=== PATIENT | female | born 1985 | race Caucasian/White ===

== ENCOUNTER 2022-03-11 17:56 | Emergency (ER) | payer OTHER, SELFPAY ==
--- NOTE | ~2022-03-11 | CT_ITS ---
EXAMINATION: CT abdomen pelvis w con DATE: 03/11/2022 22:51 INDICATION: RLQ pain TECHNIQUE: Computed tomography (CT) of the abdomen and pelvis was performed with 100 mL Omnipaque-350 intravenous contrast. Automated exposure control and iterative reconstruction technique were employe d. The dose-length product was 202.77 mGy-cm. COMPARISON: 11/03/2017. FINDINGS: Lower thorax: Left basilar scar/atelectasis. Moderate hiatal hernia. Liver: Normal. Biliary/Gallbladder: Gallbladder is normal. No bile duct dilation. Pancreas: No mass or duct dilation. Spleen: Normal. Adrenals:No mass. Kidneys: No mass, stone, or hydronephrosis. GI tract: The rectum is dilated to 5.6 cm by formed stool. Appendix not visualized. Mesentery/Peritoneum: No ascites, mass, or free air. Retroperitoneum: No mass. Pelvis: Retroverted uterus. Right corpus luteal cyst. Free pelvic fluid in the physiologic range. Soft Tissues: Soft tissues and body wall unremarkable. Bones: No acute osseous finding. IMPRESSION: Appendix not visualized. Fecal impaction. Otherwise no CT finding to explain right lower quadrant rocky n. Reviewed, dictated and finalized at location K. IMPRESSION: Appendix not visualized. Fecal impaction. Otherwise no CT finding to explain ri ght lower quadrant pain.
[2022-03-11 17:58] VITALS: BP 132/93; PULSE 112; RESP 14; TEMP 37.1; O2SAT 99
[2022-03-11 18:30] LABS: Basophils Absolute Auto 0.1 K/mm3 (0.0-0.1); Basophils Percent Auto 1.5 % (0.2-1.2); Eosinophils Absolute Auto 0.4 K/mm3 (0-0.3); Eosinophils Percent Auto 5.4 % (0-4.4); Hematocrit 36.6 % (37.0-47.0); Immature Granulocyte Absolute 0.02 K/mm3 (0.00-0.031); Immature Granulocyte Percent A 0.3 % (0-0.5); Lymphocytes Absolute Auto 1.58 K/mm3 (0.9-3.2); Lymphocytes Percent Auto 19.8 % (18.3-44.2); Mean Corpuscular HGB Conc 30.1 g/dl (32-36); Mean Corpuscular Hemoglobin 22.8 pg (26-34); Mean Corpuscular Volume 75.9 fl (80-100); Monocytes Absolute Auto 0.5 K/mm3 (0.1-0.6); Monocytes Percent Auto 6.4 % (2.6-8.5); Neutrophils Absolute Auto 5.3 K/mm3 (1.3-6.7); Neutrophils Percent Auto 66.6 % (45.5-73.1); Platelet Count Result 481 k/mm3 (150-375); Red Blood Count 4.82 M/mm3 (4.2-5.4); Red Cell Distribution Width 14.9 % (11.5-14.5)
[2022-03-11 18:40] LABS: Appearance Urine Slightly Cloudy (Clear); Bilirubin Urine 1+ (Negative); Blood Urine Negative (Negative); Color Urine Yellow (Yellow); Glucose Urine UA Negative (Negative); Ketones Urine 1+ mg/dL (Negative); Leukocyte Esterase Ur Negative LEU/UL (Negative); Nitrate Urine Negative (Negative); Protein Urine 1+ mg/dL (Negative); Specific Grav Ur >= 1.030 (1.001-1.035); Urobilinogen Urine 0.2 mg/dL (<2.0); pH Urine 5.5 (5.0-9.0)
[2022-03-11 18:43] LABS: Alanine Aminotransferase 35 U/L (6-35); Albumin Level 4.2 g/dL (3.5-5.1); Alkaline Phosphatase 95 U/L (38-126); Anion Gap 13 mmol/L (8-16); Aspartate Amino Transferase 36 U/L (14-36); Bilirubin,Total 0.5 mg/dL (0.2-1.3); Blood Urea Nitrogen 14 mg/dL (7-17); Carbon Dioxide 20 mmol/L (22-30); Chloride 101 mmol/L (98-107); Estimated CRCL calculation 98 ml/min; Estimated Glomerular Filt Rate > 60; Glucose 103 mg/dL (65-110); Lipase 44 U/L (23-300); Potassium 3.6 mmol/L (3.4-5.0); Sodium 134 mmol/L (137-145)
[2022-03-11 18:49] LABS: Bacteria Urine Trace /hpf; Mucus Urine Few /lpf; Squamous Epithelial Cell Urine Many /hpf (Few)
[2022-03-11 18:52] LABS: Amorphous Sediment Urine Few
[2022-03-11 18:53] LABS: Add Urine Microscopic? YES
[2022-03-11] MEDS: SODIUM CHLORIDE 0.9% IV 1,000 ML 999 ML IV CONT (21:24)
[2022-03-11] MEDS: ONDANSETRON INJ 4 MG/2 ML VIAL IV PUSH (21:26)
[2022-03-11] MEDS: MORPHINE SULFATE (*CRX) 4 MG/ML INJ IV PUSH (21:28)
[2022-03-11 21:29] VITALS: BP 117/78; PULSE 97; RESP 18; O2SAT 100
[2022-03-11 22:12] LABS: Pregnancy On Board Control Positive; Urine Pregnancy Test Negative
--- NOTE | 2022-03-11 23:02 | ED.ABDPAIN ---
HPI - Abdominal Pain General Chief Complaint: Abdominal Pain Stated Complaint: abd pain Time Seen by Provider: 03/11/22 20:28 History of Present Illness HPI narrative: Patient is a 37-year-old female who presents ER with right lower quadrant abdominal pain. Ongoing over the last week and a half worsening over the last 2 days. Worsened with movement and palpation of the right lower quadrant. No fevers or chills or sweats. Denies diarrhea or constipation. She is passing gas. Has not found any alleviating factors. Denies urinary symptoms. Related Data Allergies Allergy/AdvReac Type Severity Reaction Status Date / Time amoxicillin Allergy Unknown Unknown Verified 03/11/22 20:48 Penicillins Allergy Unknown Unknown Verified 03/11/22 20:48 Review of Systems Review of Systems: All systems reviewed & are unremarkable except as noted in HPI and below Constitutional: Constitutional: Denies chills and Denies fever(s) Cardiovascular: Cardiovascular: Denies chest pain and Denies radiating jaw, neck or arm pain Respiratory: Respiratory: Denies cough and Denies dyspnea Gastrointestinal: Gastrointestinal: Reports abdominal pain, Denies constipation, Denies diarrhea, Denies nausea and Denies vomiting Genitourinary: Genitourinary: Denies nocturia, Denies dysuria and Denies flank pain Exam Narrative: GENERAL: Uncomfortable-appearing, well-nourished, and in no acute distress. HEAD: Normocephalic, atraumatic. CHEST: Clear to auscultation. No respiratory distress. HEART: Regular rate and rhythm. Normal peripheral pulses. ABDOMEN: Soft, nontender, nondistended, normal active bowel sounds. EXTREMITIES: Normal range of motion. No edema. SKIN: Warm, dry, no rash. NEURO: Alert and oriented x3. PSYCH: Normal mood and affect. Course Course Emergency Course: Patient with evacuation of large amount of stool after administering enema. Discharge home with stool softeners. Vital Signs Vital signs: Vital Signs Temperature 98.8 F 03/11/22 17:58 Pulse Rate 112 H 03/11/22 17:58 Respiratory Rate 14 03/11/22 17:58 Blood Pressure 132/93 H 03/11/22 17:58 Pulse Oximetry 99 03/11/22 17:58 Oxygen Delivery Room Air 03/11/22 17:58 Temperature 98.8 F 03/11/22 17:58 Pulse Rate 97 03/11/22 21:29 Respiratory Rate 18 03/11/22 21:29 Blood Pressure 117/78 03/11/22 21:29 Pulse Oximetry 100 03/11/22 21:29 Oxygen Delivery Room Air 03/11/22 17:58 MDM - Abdominal Pain Lab Data Result diagrams: 03/11/22 18:17 03/11/22 18:17 Labs: Lab Results 03/11/22 03/11/22 03/11/22 Range/Units 18:16 18:17 18:17 WBC 8.0 (4.5-10.0) K/mm3 RBC 4.82 (4.2-5.4) M/mm3 Hgb 11.0 L (12.0-15.0) g/dL Hct 36.6 L (37.0-47.0) % MCV 75.9 L (80-100) fl MCH 22.8 L (26-34) pg MCHC 30.1 L (32-36) g/dl RDW 14.9 H (11.5-14.5) % Plt Count 481 H (150-375) k/mm3 MPV 9.0 (7.4-10.4) fl Immature Gran % (Auto) 0.3 (0-0.5) % Neut % (Auto) 66.6 (45.5-73.1) % Lymph % (Auto) 19.8 (18.3-44.2) % [place] % (Auto) 6.4 (2.6-8.5) % Eos % (Auto) 5.4 H (0-4.4) % Baso % (Auto) 1.5 H (0.2-1.2) % Lymph # (Auto) 1.58 (0.9-3.2) K/mm3 [place] # (Auto) 0.5 (0.1-0.6) K/mm3 Eos # (Auto) 0.4 H (0-0.3) K/mm3 Baso # (Auto) 0.1 (0.0-0.1) K/mm3 Abs Immat Gran (auto) 0.02 (0.00-0.031) K/mm3 Absolute Neuts (auto) 5.3 (1.3-6.7) K/mm3 Absolute Nucleated RBC 0.0 (0.0-0.012) K/mm3 Nucleated RBC % 0.0 (0.0-0.2) % Sodium (137-145) mmol/L Potassium (3.4-5.0) mmol/L Chloride (98-107) mmol/L Carbon Dioxide (22-30) mmol/L Anion Gap (8-16) mmol/L BUN (7-17) mg/dL Creatinine (0.7-1.0) mg/dL Estim Creat Clear Calc ml/min Estimated GFR (59 - ) Glucose (65-110) mg/dL Calcium (8.4-10.2) mg/dL Total Bilirubin (0.2-1.3) mg/dL AST (14-36) U/L ALT (6-35) U/L Alkaline Phosphata
[2022-03-12 01:10] VITALS: BP 108/72; PULSE 96; RESP 18; O2SAT 100
== END 2022-03-12 01:10 | disposition home or self-care (01) ==
PROVIDERS: Physician Assistant; Emergency Provider Emergency Medicine; PCP Physician Assistant
DX: K56.41 Fecal impaction (principal)
CPT/HCPCS: 36415; 74177; 80053; 81001; 81025; 83690; 85025; 96361; 96374; 96375; 99284; J2270; J2405; J7030; Q9967

== ENCOUNTER 2023-04-20 15:54 | Emergency (ER) | payer OTHER, SELFPAY ==
--- NOTE | 2023-04-20 16:04 | ED.SOB ---
HPI - SOB/Dyspnea General Chief Complaint: Shortness of Breath/Dyspnea Stated Complaint: Swelling of Legs/Shortness of Breath Time Seen by Provider: 04/20/23 16:20 Mode of arrival: ambulatory Limitations: no limitations History of Present Illness HPI Narrative: 38-year-old female presents with concern for edema, shortness of breath. Patient reports 3 days ago she began having large amount edema in her legs, torso. Reports it makes her feel short of breath when she is active. MD elicited complaint: shortness of breath (Edema) and anxiety Related Data Home Medications Medication Instructions Recorded Confirmed alprazolam 1 mg tablet mg 04/20/23 cyclobenzaprine 10 mg tablet mg 04/20/23 sertraline 04/20/23 Allergies Allergy/AdvReac Type Severity Reaction Status Date / Time amoxicillin Allergy Unknown Unknown Verified 03/11/22 20:48 Penicillins Allergy Unknown Unknown Verified 03/11/22 20:48 Review of Systems Review of Systems: CONSTITUTIONAL: Denies fever. CARDIOVASCULAR: Denies chest pain, palpitations. Reports generalized edema. RESPIRATORY: Denies cough your report dyspnea. GASTROINTESTINAL: Denies abdominal pain MUSCULOSKELETAL: Reports myalgia. PSYCHIATRIC: Reports anxiety All systems reviewed & are unremarkable except as noted in HPI and below PMFSH Comments At time of signature, agree with nursing past medical, surgical, social and family history. There is no relevant family history pertinent to the presenting complaint Exam Narrative: GENERAL: Nontoxic-appearing HEAD: Normocephalic, atraumatic. EYES: PERRLA, sclera clear ENT: Nares clear. Mucous membranes moist. NECK: Supple. CHEST: No respiratory distress. Clear to auscultation. No bony deformities, no asymmetry. Speaks in full sentences. HEART: Tachycardic EXTREMITIES: Marked edema of all extremities SKIN: Warm, dry, no visible rash. NEURO: Alert and oriented x3. PSYCH: Tearful Course Course Emergency Course: Patient is aware of, understands and agrees to be transferred to the emergency room. Patient agrees to proceed directly to the emergency department. Portions of this record may have been created with voice recognition software Level of Care: Express Care Visit Vital Signs Vital signs: Reviewed. Transfer Transfered to: [facility] Transportation: Other ([facility]) Transfer rationale: Tachycardia, generalized edema Accepting physician: Brian MDM - SOB/Dyspnea MDM Narrative Medical decision making narrative: Exam findings warrant further evaluation emergency room Critical Care Time Critical Care Time Critical Care Time: No Discharge Plan Discharge Clinical Impression: Edema, Tachycardia Patient Disposition: Acute Care Hospital Condition: Stable Prescriptions: No Action cyclobenzaprine 10 mg tablet alprazolam 1 mg tablet sertraline polyethylene glycol 3350 [Miralax] 17 gram powder in packet 17 g PO DAILY Qty: 14 0RF Follow-up/Referrals: Dinesh,SIVAN Vogel [Primary Care Provider] - Time of Disposition: 16:27
[2023-04-20 16:12] VITALS: BP 109/93; PULSE 140; RESP 16; TEMP 37.4; O2SAT 99
== END 2023-04-20 16:37 | disposition short-term general hospital (02) ==
PROVIDERS: Emergency Provider Nurse Practitioner; PCP Physician Assistant
DX: R60.9 Edema, unspecified (principal); R00.0 Tachycardia, unspecified; Z79.899 Other long term (current) drug therapy
CPT/HCPCS: 99212; G0463

== ENCOUNTER 2023-04-20 17:10 | Observation (INO) | payer OTHER, SELFPAY ==
[2023-04-20] VITALS (23 sets, daily range): BP systolic 119–133; BP diastolic 72–91; PULSE 91–147; RESP 11–23; TEMP 36.9–37.6; O2SAT 99–100; BMI 29.7
--- NOTE | ~2023-04-20 | XR_ITS ---
EXAMINATION: XR chest 2V Exam Date/Time: 04/20/2023 20:15 CDT HISTORY: swelling, CP, SOB Comparison: 10/26/2018; CT abdomen and pelvis 04/20/2023. RESULT: Lines, tubes, and devices: None. Lungs and pleura: Reticulonodular opacities, most evident in the left lower lung. No focal consolida tion. No pneumothorax or effusion. Cardiomediastinal silhouette: Hiatal hernia otherwise unremarkable. Other: No acute osseous or upper abdominal finding. IMPRESSION: Pulmonary opacities may represent bronchiolitis, as can be seen with atypical infection, asthma, aspi ration, and small airways disease. Reviewed, dictated and finalized at location K. IMPRESSION: Pulmonary opacities may represent bronchiolitis, as can be seen with atypical i nfection, asthma, aspiration, and small airways disease.
--- NOTE | ~2023-04-20 | CT_ITS ---
EXAMINATION: CT abdomen pelvis w con DATE: 04/20/2023 20:18 INDICATION: RLQ tenderness TECHNIQUE: Computed tomography (CT) of the abdomen and pelvis was performed with 100 mL Omnipaque-350 intravenous contrast. Automated exposure control and iterative reconstruction technique were employe d. The dose-length product was 451.62 mGy-cm. COMPARISON: None. FINDINGS: Lower thorax: Minimal bibasilar atelectasis. Left lingular and basilar scar. Subtle left lower lobe c entrilobular groundglass and tree-in-bud opacities. Liver: Normal. Biliary/Gallbladder: Gallbladder is normal. No bile duct dilation. Pancreas: No mass or duct dilation. Spleen: Normal. Adrenals:No mass. Kidneys: No suspicious mass, obstructing stone, or hydronephrosis. GI tract: Small hiatal hernia. Patulous distal esophagus with moderate wall thickening/edema and surr ounding subcentimeter lymph nodes.. No small or large bowel dilation. Large volume of colonic stool. Mild mucosal hyperemia and mild periappendiceal inflammatory change in a nondilated appendix. Mesentery/Peritoneum: No ascites, mass, or free air. Retroperitoneum: No mass. Pelvis: Mild bladder wall thickening/inflammation in a partially distended urinary bladder. Normal ov yogi and uterus. Small and free pelvic fluid, within physiologic range Soft Tissues: Soft tissues and body wall unremarkable. Bones: No acute osseous finding. IMPRESSION: Subtle left lower lobe opacities may represent mild aspiration, atypical infection, or bronchiolitis. Distal esophagitis and esophageal wall thickening, with adjacent subcentimeter lymph nodes, recommend nonemergent referral for endoscopy. Mucosal hyperemia and mild periappendiceal inflammatory change, may represent early acute appendiciti s in the appropriate clinical context. Cystitis versus wall thickening from inadequate urinary bladder distention. Large volume of colonic stool as can be seen with constipation. Reviewed, dictated and finalized at location K. IMPRESSION: Subtle left lower lobe opacities may represent mild aspiration, atypical infect ion, or bronchiolitis. Distal esophagitis and esophageal wall thickening, with adjacent subcentimeter lymph nodes, recommend nonemergent referral for endoscopy. Mucosal hyperemia and mild periappendiceal inflammatory change, may represent e tracie acute appendicitis in the appropriate clinical context. Cystitis versus wall thickening from inadequate urinary bladder distention. Large volume of colonic stool as can be seen with constipation.
--- NOTE | ~2023-04-20 | US_ITS ---
Limited Abdominal Sonogram: Real-time sonographic imaging of the right upper quadrant was performed. Clinical History: Transaminitis Findings: The liver appears normal with no evidence of mass lesion or bile duct dilatation. Main por amando vein demonstrates normal direction of flow. The gallbladder is well distended, and appears normal with no evidence of gallstone or wall thickening. The common bile duct measures 5 mm. The visualize d pancreas, aorta, and IVC are unremarkable. Right kidney measures 8.6 cm in length, without evidence for hydronephrosis. Impression: No significant abnormality seen. Reviewed, dictated and finalized at location . Impression: No significant abnormality seen.
--- NOTE | ~2023-04-20 | US_ITS ---
Duplex Sonography of the bilateral lower extremities: Indication: Swelling Sagittal and transverse B-mode images as well as color-flow imaging were performed on the right and l eft femoral and popliteal veins. B-mode examination was done without and with compression in the tra nsverse plane. There is good visualization of the bilateral common femoral, proximal profunda femora l, superficial femoral, greater saphenous, and popliteal veins. Normal flow was seen on color-flow im aging. Normal compressibility was demonstrated. Visualized calf veins are patent. Impression: No evidence of deep vein thrombosis involving either lower extremity. Reviewed, dictated and finalized at location M. Impression: No evidence of deep vein thrombosis involving either lower extremit y.
--- NOTE | 2023-04-20 17:16 | ECG_ITS ---
Measurements Intervals [place] Rate: 132 P: 42 ID: 122 QRS: 5 QRSD: 82 T: 13 QT: 310 QTc: 460 Interpretive Statements SINUS TACHYCARDIA DELAYED PRECORDIAL R/S TRANSITION MINIMAL Q WAVES- HIGH LATERAL LEADS BORDERLINE T WAVE ABNORMALITY- INFERIOR LEADS ABNORMAL ECG NO PREVIOUS ECG AVAILABLE FOR COMPARISON Electronically Signed On 04-20-2023 19:56:35 CDT by William Chun D.O.
--- NOTE | 2023-04-20 18:50 | ED.EXTPRO ---
HPI - Extremity Problem General Chief complaint: Extremity Problem,Nontraumatic Stated complaint: leg swelling for 3 days. Time Seen by Provider: 04/20/23 17:37 History of Present Illness HPI Narrative: Patient is a 38-year-old female presenting with swelling. Patient states that she noticed mild feet swelling about 6 weeks ago. She saw her physician who ordered labs but she is unsure what they showed. States over the last 3 days she has had an acute worsening of the swelling and she is now swollen to her abdomen. States that she has been vomiting for several weeks. She complains of right lower abdominal pain. States that she has been short of breath with a cough. She sometimes gets chest pain when she feels anxious. No fevers or chills, headache, numbness or weakness, lightheadedness, diarrhea, dysuria, flank pain. Related Data Home Medications Medication Instructions Recorded Confirmed alprazolam 1 mg tablet 1 mg PO TID 04/20/23 04/21/23 cyclobenzaprine 10 mg tablet 10 mg PO BID 04/20/23 04/21/23 sertraline 200 mg PO DAILY 04/20/23 04/21/23 Allergies Allergy/AdvReac Type Severity Reaction Status Date / Time amoxicillin Allergy Unknown Unknown Verified 03/11/22 20:48 Penicillins Allergy Unknown Unknown Verified 03/11/22 20:48 Review of Systems Review of Systems: All systems reviewed & are unremarkable except as noted in HPI and below PMFSH Past Medical History Medical History (Updated 04/24/23 @ 14:16 by Ana Randle MD) Constipation Gastroparesis Hepatitis C Family History Family History Father FH: kidney cancer Mother Heart attack Social History Social History Smoking status: Former smoker Tobacco type: cigarettes and e-cigarettes/vaping Alcohol intake: former Substance use: current Substance use type: marijuana Last use: 04/09/23 Lack of Transportation: No Lack of Food: Never True Current Housing: I Have Housing Concerned About Future Housing: No Difficulty Paying Gas/Electric Bills: No Difficulty Paying for Meds: No Currently Unemployed: No Education: Don't Know Difficulty w/ Childcare or Family Care: No Spiritual care concerns: No Exam Narrative: GENERAL: Tearful secondary to situation, pleasant and cooperative HEAD: Normocephalic, atraumatic. EYES: PERRLA and EOMI. ENT: Nares clear, no rhinorrhea or epistaxis. Mucous membranes moist. NECK: Supple. CHEST: Clear to auscultation. No respiratory distress. HEART: Tachycardic, regular rhythm normal peripheral pulses. ABDOMEN: Soft, + right lower quadrant tenderness without guarding or rebound EXTREMITIES: Normal range of motion. Pitting edema bilateral lower extremities up to the thighs SKIN: Warm, dry, no rash. NEURO: No focal deficits. Alert and oriented x3. PSYCH: Tearful and anxious Course Vital Signs Vital signs: Vital Signs Temperature 99.6 F 04/20/23 17:17 Pulse Rate 147 H 04/20/23 17:17 Respiratory Rate 23 H 04/20/23 17:17 Blood Pressure 127/72 04/20/23 17:17 Pulse Oximetry 99 04/20/23 17:17 Oxygen Delivery Room Air 04/20/23 17:17 Temperature 97.4 F L 04/22/23 06:00 Pulse Rate 109 H 04/22/23 06:00 Respiratory Rate 18 04/22/23 06:00 Blood Pressure 104/80 04/22/23 06:00 Pulse Oximetry 97 04/22/23 06:00 Oxygen Delivery Room Air 04/22/23 08:00 MDM - Extremity (Nontraumatic) MDM Narrative Medical decision making narrative: Patient is a 38-year-old female presenting with progressive lower extremity swelling that is now up to her abdomen. Patient is tachycardic, otherwise vitals are within normal limits. Saturating well on room air. Exam otherwise remarkable for the above. EKG per my interpretation shows sinus tachycardia, normal axis and intervals, no ST elevations or depressions. Blood work is concerning for hemoglobin of 5. 2 unit
[2023-04-20 19:16] LABS: Basophils Absolute Auto 0.1 K/mm3 (0.0-0.1); Basophils Percent Auto 0.9 % (0.2-1.2); Eosinophils Absolute Auto 0.9 K/mm3 (0-0.3); Eosinophils Percent Auto 9.7 % (0-4.4); Hematocrit 21.4 % (37.0-47.0); Immature Granulocyte Absolute 0.19 K/mm3 (0.00-0.031); Immature Granulocyte Percent A 2.1 % (0-0.5); Lymphocytes Absolute Auto 1.91 K/mm3 (0.9-3.2); Lymphocytes Percent Auto 21.1 % (18.3-44.2); Mean Corpuscular HGB Conc 23.4 g/dl (32-36); Mean Corpuscular Hemoglobin 15.2 pg (26-34); Mean Corpuscular Volume 65.2 fl (80-100); Mean Platelet Volume 9.2 fl (7.4-10.4); Monocytes Absolute Auto 0.7 K/mm3 (0.1-0.6); Monocytes Percent Auto 7.2 % (2.6-8.5); Neutrophils Absolute Auto 5.3 K/mm3 (1.3-6.7); Nucleated Red Blood Cells Absolute Auto 0.1 K/mm3 (0.0-0.012); Nucleated Red Blood Cells Perc 1.4 % (0.0-0.2); Platelet Count Result 376 k/mm3 (150-375); Red Blood Count 3.28 M/mm3 (4.2-5.4); Red Cell Distribution Width 20.9 % (11.5-14.5)
[2023-04-20 19:37] LABS: Hypochromasia 2+ (NORMAL); Schistocytes None Seen (NORMAL)
[2023-04-20 19:38] LABS: Anisocytosis 3+ (NORMAL)
[2023-04-20 19:45] LABS: Alanine Aminotransferase 222 U/L (6-35); Albumin Level 2.9 g/dL (3.5-5.1); Alkaline Phosphatase 155 U/L (38-126); Anion Gap 1 mmol/L (8-16); Aspartate Amino Transferase 209 U/L (14-36); Bilirubin,Total 0.3 mg/dL (0.2-1.3); Blood Urea Nitrogen 6 mg/dL (7-17); Calcium 8.9 mg/dL (8.4-10.2); Carbon Dioxide 28 mmol/L (22-30); Chloride 105 mmol/L (98-107); Estimated CRCL calculation 145 ml/min; Estimated Glomerular Filt Rate > 60; Glucose 98 mg/dL (65-110); Lipase 50 U/L (23-300); Potassium 3.8 mmol/L (3.4-5.0); Sodium 134 mmol/L (137-145)
[2023-04-20 19:49] LABS: Ethanol < 10 mg/dL (<10)
[2023-04-20 19:54] LABS: Influenza A QL RT-PCR Negative (Negative); Influenza B QL RT-PCR Negative (Negative); SARS-CoV-2 RNA PCR Negative (Negative)
[2023-04-20 19:56] LABS: NT Pro B Type Natriuretic Pept < 20 pg/mL (19.9-100); Troponin I < 0.012 ng/mL (0.000-0.034)
[2023-04-20 20:28] LABS: Pregnancy On Board Control Positive; Urine Pregnancy Test Negative
[2023-04-20 20:35] LABS: Appearance Urine Cloudy (Clear); Bacteria Urine 4+ /hpf; Bilirubin Urine Negative (Negative); Blood Urine Negative (Negative); Color Urine Yellow (Yellow); Glucose Urine UA Negative (Negative); Ketones Urine Negative (Negative); Leukocyte Esterase Ur 3+ LEU/UL (Negative); Need Manual Microscopic Reviewed; Nitrate Urine Negative (Negative); Non Pathogenic Casts 0-2; Protein Urine Negative (Negative); RBC Urine 0-2 /hpf (0-2); Squamous Epithelial Cell Urine Few /hpf (Few); Urobilinogen Urine 0.2 mg/dL (<2.0); pH Urine 7.5 (5.0-9.0)
[2023-04-20 20:36] LABS: Add Urine Microscopic? YES
--- NOTE | 2023-04-20 22:01 | PM.IMHP ---
H&P: HPI History of Present Illness Date/Time: 04/20/23 22:01 Chief Complaint: LEG SWELLING Narrative: THIS IS A 38-YEAR-OLD FEMALE WITH PAST MEDICAL HISTORY SIGNIFICANT FOR HEPATITIS-C, IRON DEFICIENCY ANEMIA. PATIENT PRESENTS TO THE EMERGENCY ROOM DUE TO WORSENING BILATERAL LOWER EXTREMITY EDEMA. PATIENT CAN NOT REALLY GIVE A GOOD HISTORY IS DISPERSE, TANGENTIAL AND CIRCUMSTANTIAL. DENIED COFFEE-GROUND EMESIS OR HEMATEMESIS OR BRIGHT RED BLOOD PER RECTUM OR MELENA HOWEVER SAID THAT SHE HAD SOME BLEEDING BUT DIFFICULT TO TELL HAS BEEN IN HER USUAL STATE OF HEALTH. EXAMINATION: CT abdomen pelvis w con DATE: 04/20/2023 20:18 INDICATION: RLQ tenderness TECHNIQUE: Computed tomography (CT) of the abdomen and pelvis was performed with 100 mL Omnipaque-350 intravenous contrast. Automated exposure control and iterative reconstruction technique were employed. The dose-length product was 451.62 mGy-cm. COMPARISON: None. FINDINGS: Lower thorax: Minimal bibasilar atelectasis. Left lingular and basilar scar. Subtle left lower lobe centrilobular groundglass and tree-in-bud opacities. Liver: Normal.? Biliary/Gallbladder: Gallbladder is normal. No bile duct dilation. Pancreas: No mass or duct dilation. Spleen: Normal. Adrenals:No mass. Kidneys: No suspicious mass, obstructing stone, or hydronephrosis. GI tract: Small hiatal hernia. Patulous distal esophagus with moderate wall thickening/edema and surrounding subcentimeter lymph nodes.. No small or large bowel dilation. Large volume of colonic stool. Mild mucosal hyperemia and mild periappendiceal inflammatory change in a nondilated appendix. Mesentery/Peritoneum: No ascites, mass, or free air. Retroperitoneum: No mass. Pelvis: Mild bladder wall thickening/inflammation in a partially distended urinary bladder. Normal ovaries and uterus. Small and free pelvic fluid, within physiologic range Soft Tissues: Soft tissues and body wall unremarkable. Bones:? No acute osseous finding. IMPRESSION: Subtle left lower lobe opacities may represent mild aspiration, atypical infection, or bronchiolitis. Distal esophagitis and esophageal wall thickening, with adjacent subcentimeter lymph nodes, recommend nonemergent referral for endoscopy. Mucosal hyperemia and mild periappendiceal inflammatory change, may represent early acute appendicitis in the appropriate clinical context. Cystitis versus wall thickening from inadequate urinary bladder distention. Large volume of colonic stool as can be seen with constipation. Review of Systems Review of Systems: LEG SWELLING Constitutional: Constitutional: Denies chills and Denies fever(s) Eyes: Eyes: Denies change in vision ENT: Denies dysphagia, Denies vertigo, Denies dizziness and Denies odynophagia Cardiovascular: Cardiovascular: Denies chest pain, Reports leg edema, Denies radiating jaw, neck or arm pain and Denies palpitations Respiratory: Respiratory: Denies cough, Denies excessive phlegm production, Denies pain on inspiration, Denies dyspnea and Denies wheezing Gastrointestinal: Gastrointestinal: Reports abdominal pain, Denies melena, Denies hematochezia, Denies coffee ground emesis, Denies dyspepsia, Reports heartburn, Denies diarrhea, Reports nausea, Reports vomiting and Denies hematemesis Genitourinary: Genitourinary: Denies dysuria Musculoskeletal: Musculoskeletal: Denies arthralgias and Denies joint swelling Integumentary/Breasts: Skin/Breast: Denies rash Neurologic: Denies focal weakness and Denies Sensory deficit (Neuro) Psychiatric: Psychiatric: Reports no additional psychiatric complaints and Reports as per HPI Endocrine: Endocrine: Denies cold intolerance, Denies fatigue, Denies flushing, Denies heat intolerance, Denies polyphagia, Denies polydipsia, Denies polyuria and Denies palpitations Hematologic/Lymphatic: Hematologic/Lymphatic: Reports no additional hematologic/lymphatic complaints and Reports as per HPI Allerg
[2023-04-20 22:25] LABS: Acetaminophen < 10 ug/mL (10-30)
[2023-04-20] MEDS: SODIUM CHLORIDE 0.9% IV 250 ML 30 ML IV CONT (22:58)
--- NOTE | 2023-04-20 23:42 | ADMGEN ---
This patient, Kassandra Cazares, was admitted to Medical Room 253-01. Patient/family oriented to hospital policies and general routines including ID bracelet, bed and alarms, visiting hours, pain management, procedures, bathroom and other care routines, personal items, smoking policy, room service/diet, and visiting hours. Information on how to activate the Rapid Response Team has been discussed. Patient/Family are encouraged to report perceived risks to care and to ask questions if they do not understand what they are told or what they should do.
[2023-04-20] MEDS: metroNIDAZOLE 500 MG/ISO 100ML 500 MG/100 ML BAG 100 MG IVPB (23:49)
[2023-04-20] MEDS: cefTRIAXone 2 GM/NS 100 ML 2 GM/100 ML BAG IVPB (23:50)
[2023-04-20] MEDS: PANTOPRAZOLE SODIUM IV 40 MG VIAL IV PUSH (23:50)
[2023-04-20] MEDS: HYDROmorphone HCL INJ (*CRX) 1 MG/ML SYR IV PUSH (23:51)
[2023-04-21] VITALS (16 sets, daily range): BP systolic 109–141; BP diastolic 61–89; PULSE 82–122; RESP 16–20; TEMP 36.3–37.4; O2SAT 92–100
--- NOTE | 2023-04-21 | ECHO_ITS ---
Patient Info Name: Kassandra Cazares Age: 38 years : 1985 Gender: Female Ht: 61 in Wt: 146 lbs BSA: 1.71 m2 HR: 77 bpm Heart Rhythm: Sinus Rhythm Technical Quality: Good Exam Date: 04/21/2023 2:13 PM Exam Location: [facility] Pulmonary Patient Status: Outpatient Admit Date: 04/20/2023 Staff Ordering Physician: Geronimo Dangelo APRN Supervisor Wound: Sha Mills RDCS Attending Provider: Flavio Locke MD Referring Physician: Antolin POPE; Exam Type: CA echo doppler color flow Study Info Indications - swelling Complete two-dimensional, color flow and Doppler transthoracic echocardiogram is performed. Summary 1. Complete two-dimensional, color flow and Doppler transthoracic echocardiogram is performed. 2. Left ventricular chamber dimension is normal. 3. Left ventricular systolic function is normal, estimated at 60-65%. 4. The left ventricular diastolic function is normal. 5. Right ventricular systolic function is normal. 6. No significant valvular disease. Left Ventricle Left ventricular chamber dimension is normal. Left ventricular systolic function is normal, estimated at 60-65%. There is no increased left ventricular wall thickness. The left ventricular diastolic function is normal. Right Ventricle Right ventricular chamber dimension is normal. Right ventricular systolic function is normal. Left Atria Left atrial chamber dimension is normal. Right Atria Right atrial chamber dimension is normal. Atrial Septum Intact interatrial septum visualized by color flow imaging. Aortic Valve The aortic valve is trileaflet. There is no aortic valve stenosis. There is no aortic valve regurgitation. Pulmonic Valve The pulmonic valve is not well visualized. Mitral Valve There is trace mitral valve regurgitation. Tricuspid Valve There is trace tricuspid valve regurgitation. Pericardium/Pleural There is no pericardial effusion. Inferior Vena Cava Normal inferior vena cava with >50% collapse upon inspiration consistent with normal right atrial pressure, 3 mmHg. Aorta The aortic root size at the sinus of Valsalva is normal. Left Ventricular Outflow Tract Name Value Normal LVOT 2D LVOT Diameter 1.8 cm LVOT Doppler LVOT Peak Gradient 6 mmHg LVOT Mean Gradient 4 mmHg LVOT VTI 30 cm LVOT VTI/AV VTI Ratio 0.8 LVOT Stroke Volume 75 ml LVOT CO 5.0 l/min LVOT CI 2.9 l/min/m2 Pulmonic Valve Name Value Normal RVOT Doppler RVOT Peak Gradient 2 mmHg PV Doppler PV Peak Gradient 4 mmHg Mitral Valve Name Valu
[2023-04-21 00:18] LABS: Troponin I < 0.012 ng/mL (0.000-0.034)
[2023-04-21 01:15] LABS: Hepatitis B Surface Antigen Negative (Negative)
[2023-04-21 01:20] LABS: HAV RESULT Negative (Negative); Hepatitis B Core IgM Result Negative (Negative)
[2023-04-21 01:33] LABS: Hepatitis C Virus Antibody Reactive (Negative)
[2023-04-21 02:57] LABS: Troponin I < 0.012 ng/mL (0.000-0.034)
[2023-04-21] MEDS: PANTOPRAZOLE SODIUM IV 80 MG in SODIUM CHLORIDE 0.9% IV 500 ML 50 MG IV CONT (03:38)
[2023-04-21] MEDS: HYDROmorphone HCL INJ (*CRX) 1 MG/ML SYR IV PUSH (03:41)
[2023-04-21 05:30] LABS: Hematocrit 28.8 % (37.0-47.0); Hemoglobin 8.1 g/dL (12.0-15.0); Mean Corpuscular HGB Conc 28.1 g/dl (32-36); Mean Corpuscular Volume 71.1 fl (80-100); Mean Platelet Volume 9.1 fl (7.4-10.4); Platelet Count Result 333 k/mm3 (150-375); Red Blood Count 4.05 M/mm3 (4.2-5.4); Red Cell Distribution Width 26.6 % (11.5-14.5)
[2023-04-21] MEDS: metroNIDAZOLE 500 MG/ISO 100ML 500 MG/100 ML BAG 100 MG IVPB ×3 (08:51→17:36)
[2023-04-21] MEDS: ALPRAZolam (*CRX) 0.5 MG TABLET 1 MG PO ×3 (08:51→17:37)
[2023-04-21] MEDS: SERTRALINE HCL 50 MG TABLET 200 MG PO (08:51)
[2023-04-21] MEDS: CYCLOBENZAPRINE HCL 10 MG TABLET PO ×2 (08:51→17:37)
--- NOTE | 2023-04-21 09:50 | PM.IMPN ---
Progress Note: A&P Assessment and Plan (1) Severe anemia: Code(s): D64.9 - Anemia, unspecified Status: Acute Assessment and Plan: Initial hemoglobin 5.0 down from 11.0 a year ago currently 8.1 status post 2 units PRBCs (2) Hepatitis C: Code(s): B19.20 - Unspecified viral hepatitis C without hepatic coma Status: Acute Assessment and Plan: Elevated liver enzymes with history of hepatitis-C, right upper quadrant ultrasound unremarkable. (3) Leg swelling: Code(s): M79.89 - Other specified soft tissue disorders Status: Acute Assessment and Plan: Improved after blood transfusion. (4) Hypochromic microcytic anemia: Code(s): D50.9 - Iron deficiency anemia, unspecified Status: Acute Assessment and Plan: Status post blood transfusion. (5) Abnormal LFTs: Code(s): R79.89 - Other specified abnormal findings of blood chemistry Status: Acute Assessment and Plan: See 2. Plan Proceed with GI and surgery consults, further based on their recommendations. Bilateral lower extremity venous Dopplers due to swelling rule out DVT Echocardiogram given swelling and tachycardia. Time Spent With Patient Time with patient: 25 - 35 minutes Subjective Date/time seen: 04/21/23 09:50 Interval history: 38-year-old female patient with past history of hepatitis C admitted to the hospital due to severe anemia suspected GI bleed, possible early appendicitis and bilateral lower extremity swelling up to the level of the abdomen. Patient reports that after receiving blood her swelling significantly improved. She does not recall any bleeding for certain but she does note frequent vomiting. Patient denies IV drug use. GI and surgery were requested to see patient and consults have been called. Patient reports she is feeling much better still a bit anxious with history anxiety/depression. Review of Systems Review of Systems: All systems reviewed & are unremarkable except as noted in HPI and below Exam Narrative: GENERAL: Generally well appearing, alert and oriented, in no apparent distress. She is pleasant and conversant in full sentences. HEENT: Pupils are equally round and briskly reactive to light. Extraocular muscles are intact. Oral mucous membranes are moist without lesions. NECK: The patient has no noted JVD. No adenopathy is appreciated. CHEST/LUNGS: Lungs are clear bilaterally without rhonchi, rales, or wheezes. There is no subcutaneous air appreciated. There is no tenderness to the chest wall. HEART: The patient has a tachycardic rate and regular rhythm. ABDOMEN: The patient?s abdomen is soft, nontender, and nondistended. Bowel sounds are positive. No peritoneal signs. No anasarca noted EXTREMITIES: The patient has mild nonpitting peripheral edema up to the level of mid thighs. There is no focal long bone tenderness or deformity. SKIN: The patient?s skin is warm and dry, without rashes or lesions. PSYCHIATRIC: The patient has normal mental status and has a moderate anxious affect NEUROLOGIC: There are no gross deficits to the cranial nerves. Patient ambulates with steady gait. Objective Data Vital Signs Vital Signs: Vital Signs - 24 hr 04/20/23 17:17 04/20/23 21:48 04/20/23 22:08 Temperature 37.6 C 37.1 C 37.2 C Pulse Rate 147 H 108 H 112 H Respiratory Rate 23 H 16 22 H Blood Pressure 127/72 132/87 124/82 Pulse Oximetry 99 100 100 Oxygen Delivery Room Air 04/20/23 18:23 04/20/23 18:30 04/20/23 18:31 Temperature Pulse Rate 122 H 123 H 126 H Respiratory Rate 16 20 16 Blood Pressure 133/90 Pulse Oximetry 100 100 99 Oxygen Delivery 04/20/23 18:45 04/20/23 19:00 04/20/23 19:15 Temperature Pulse Rate 134 H 125 H 120 H Respiratory Rate 13 19 18 Blood Pressure Pulse Oximetry Oxygen Delivery 04/20/23 19:38 04/20/23 19:45 04/20/23 21:41 Temperature Pulse Rate 117 H 125 H 108 H Respiratory Rate 11 L 21
--- NOTE | 2023-04-21 11:44 | PM.CNGS ---
Assessment and Plan Assessment and plan (1) Abnormal CT of the abdomen: Code(s): R93.5 - Abnormal findings on diagnostic imaging of other abdominal regions, including retroperitoneum Status: Acute Assessment and Plan: The patient presented with lower extremity edema. She had a CT scan of the abdomen and pelvis due to RUQ/epigastric abdominal pain that showed mild periappendiceal inflammation and hyperemic wall suggesting possible early acute appendicitis, large volume of colonic stool, and esophagitis. She is not complaining of any right lower quadrant abdominal pain and is mostly tender in right upper quadrant and epigastric area. Her abdominal pain seems to be a chronic issue without any acute changes. It is more likely her abdominal pain is related to chronic GI issues rather than acute appendicitis. Her white blood cell count is also normal. Would recommend to continue IV antibiotics for now and monitor. Agree with GI consultation. If she were to develop leukocytosis or become febrile, then we may consider surgery at that time. Will continue to follow along with serial abdominal exams and labs. (2) Severe anemia: Code(s): D64.9 - Anemia, unspecified Status: Acute Assessment and Plan: Hgb 5.0 on admission, s/p transfusion of 3 units PRBCs and hgb up to 8.1. Reports blood in her stool at times. GI consulted. (3) Leg swelling: Code(s): M79.89 - Other specified soft tissue disorders Status: Acute (4) Hepatitis C: Code(s): B19.20 - Unspecified viral hepatitis C without hepatic coma Status: Acute (5) Constipation: Code(s): K59.00 - Constipation, unspecified Status: Chronic Assessment and Plan: Could be contributing to her abdominal pain. Will add Miralax and duloclax suppositories. Plan I have discussed the patient's case and plan of care with Dr. Love. Thank you for allowing us to see the patient in consultation and we will continue to follow along with you. History of Present Illness Consult details Consult date: 04/21/23 Reason for consult: other (Possible acute appendicitis) Requesting physician: Ana Randle MD Narrative: This is a 38-year-old woman who presented to the ER for evaluation of lower extremity edema. She has had progressively worsening lower extremity edema over the past 3-4 days. When she presented, she also complained of abdominal pain. She has been dealing with abdominal pain daily for many years. She sees a waiter/waitress head for gastroparesis and has been told she possibly has Crohn's disease. She describes her abdominal pain as being in the epigastric area and right upper quadrant. Her abdominal pain on presentation was similar to her chronic pain, with no acute flare up or worsening pain over the past few days. She also chronically deals with vomiting and has been vomiting intermittently over the past week and a half. She denies any coffee-ground or bloody emesis. She reports some blood with wiping after bowel movements, but no melena or hematochezia. She also reports chronic constipation. In the ER, she was found to be tachycardic with a heart rate in the 140s. Her labs showed severe anemia with a hemoglobin of 5.0. Her white blood cell count was normal. Troponin negative x3. Liver enzymes are elevated with AST 209, ALT 222, and alk-phos 155. Total bilirubin normal. Hepatitis panel showed hepatitis C antibody reactive. CT scan of the abdomen and pelvis showed subtle left lower lobe opacities, distal esophagitis and esophageal wall thickening, large volume of stool throughout the colon, mucosal hyperemia and mild periappendiceal inflammatory change possibly representing early acute appendicitis, and cystitis versus wall thickening from an adequate urinary bladder distention. She was admitted to the hospitalist. She was started on IV Rocephin and Flagyl. She was also started on a Protonix drip. GI has also been consult
[2023-04-21] MEDS: polyethylene glycoL 3350 17 GM POWD.PACK PO (13:02)
[2023-04-21] MEDS: PANTOPRAZOLE SODIUM IV 40 MG VIAL IV PUSH ×2 (14:56→21:12)
--- NOTE | 2023-04-21 15:25 | WPDGICN ---
Assessment and Plan Assessment and plan (1) Severe anemia: Code(s): D64.9 - Anemia, unspecified Status: Acute Assessment and Plan: She has not then where ever any active blood loss. She states that she has been investigated for anemia a couple of years ago by Dr. Xiong and he has referred her to the [facility] Gastroenterology Department for further investigation. (2) Leg swelling: Code(s): M79.89 - Other specified soft tissue disorders Status: Acute Assessment and Plan: This is new. Her father states that just in the last day and half they saw a great deal of edema in both lower extremities. (3) Hepatitis C: Code(s): B19.20 - Unspecified viral hepatitis C without hepatic coma Status: Acute Assessment and Plan: She is aware this diagnosis and is planning to be treated at [facility] (4) Abnormal CT of the abdomen: Code(s): R93.5 - Abnormal findings on diagnostic imaging of other abdominal regions, including retroperitoneum Status: Acute Assessment and Plan: there was a suggestion of possible appendicitis. Surgery has seen her And does not feel that she has an acute abdomen. (5) Abnormal LFTs: Code(s): R79.89 - Other specified abnormal findings of blood chemistry Status: Acute Assessment and Plan: this is most likely due to hepatitis C will be investigated at [facility]. Plan Because she has already been investigated with endoscopic be and capsule endoscopy and has been referred to the Gastroenterology Division of [facility], I agree that she should have her investigation done there. She is scheduled to be seen the day after tomorrow GI Consult Note Consult date/time: 04/21/23 15:25 HPI: Kassandra Cazares is a 38 year old female who came to emergency room primarily because of complaints of sudden onset of severe edema in her lower extremities. She states that she has been gaining weight over the last couple weeks. This is despite the fact she vomits about once a day. She does not feel nauseated but food will come up on her suddenly. She states that this is because she was diagnosed a while back with gastroparesis. She was found to be markedly anemic with a hemoglobin of 5 g which has risen to 8.1 after transfusion. He states that about 3 years ago she underwent endoscopy and colonoscopy by in [place]. He also performed a capsule test because they were looking for source of bleeding. She had 3 Hemoccult test which were all positive for blood. Consequently, she has been referred to the GI department at [facility] and does have an appointment to be seen there this coming Wednesday. she denies any new symptoms including dysphagia, heartburn, or significant change in bowel habits. She does not usually see blood her stools but if she does it is usually a small amount of red blood. CT scan of the abdomen was done which showed some periappendiceal inflammation. She has been seen by surgery we does not feel that she meets criterion for acute appendicitis,. she is where the fact that she has hepatitis-C. She states that for some reason treatment has not yet been started and had something to do with her job, not being able to get off work. She states that this is going to be addressed on Wednesday also. Review of Systems Review of Systems: All systems reviewed & are unremarkable except as noted in HPI and below PMFSH Past Medical History Medical History Constipation Gastroparesis Family History Family History Father FH: kidney cancer Mother Heart attack Social History Social History Smoking status: Former smoker Tobacco type: cigarettes and e-cigarettes/vaping Alcohol intake: former Substance use:
[2023-04-21] MEDS: cefTRIAXone 2 GM/NS 100 ML 2 GM/100 ML BAG IVPB (21:12)
[2023-04-22] VITALS: PULSE 88
[2023-04-22] MEDS: metroNIDAZOLE 500 MG/ISO 100ML 500 MG/100 ML BAG 100 MG IVPB ×2 (00:40→05:31)
[2023-04-22 04:00] VITALS: PULSE 75
[2023-04-22 06:00] VITALS: BP 104/80; PULSE 109; RESP 18; TEMP 36.3; O2SAT 97
[2023-04-22 06:08] LABS: Hematocrit 33.5 % (37.0-47.0); Hemoglobin 9.1 g/dL (12.0-15.0); Mean Corpuscular HGB Conc 27.2 g/dl (32-36); Mean Corpuscular Hemoglobin 19.7 pg (26-34); Mean Corpuscular Volume 72.5 fl (80-100); Mean Platelet Volume 9.2 fl (7.4-10.4); Platelet Count Result 358 k/mm3 (150-375); Red Blood Count 4.62 M/mm3 (4.2-5.4); Red Cell Distribution Width 27.3 % (11.5-14.5); White Blood Count 8.2 K/mm3 (4.5-10.0)
[2023-04-22 08:01] LABS: IFOB Positive Control Positive; Immunochemical Fecal Occult Bl Negative (N)
--- NOTE | 2023-04-22 08:50 | PM.DS ---
DS: Admitting Diagnosis Discharge Date 04/22/2023 Admitting Diagnosis abnormal LFTs, hypochromic microcytic anemia, leg swelling, hepatitis-C DS: Discharge Diagnosis Discharge Diagnosis (1) Abnormal LFTs: Code(s): R79.89 - Other specified abnormal findings of blood chemistry Status: Acute (2) Hypochromic microcytic anemia: Code(s): D50.9 - Iron deficiency anemia, unspecified Status: Acute (3) Hepatitis C: Code(s): B19.20 - Unspecified viral hepatitis C without hepatic coma Status: Acute (4) Leg swelling: Code(s): M79.89 - Other specified soft tissue disorders Status: Acute (5) Severe anemia: Code(s): D64.9 - Anemia, unspecified Status: Acute (6) Abnormal CT of the abdomen: Code(s): R93.5 - Abnormal findings on diagnostic imaging of other abdominal regions, including retroperitoneum Status: Acute (7) Constipation: Code(s): K59.00 - Constipation, unspecified Status: Chronic DS: Summary Hospital Course Reason for hospitalization: patient was admitted for profound anemia and lower extremity swelling. Hospital Course: Patient was admitted after discovering hemoglobin of 5.0. She received blood transfusion PRBCs either 2 or 3 units total. Patient had negative stool guaiac. She already has an appointment with [facility] Gastroenterology for further evaluation of hepatitis C and anemia. She reports an appointment in 1 more day. Patient had mild transaminase elevation. After blood transfusion patient's edema improved. She also had findings on CT scan concerning for early acute appendicitis. She was evaluated by surgery service and did not have findings of an acute abdomen. She did receive IV antibiotics while admitted but surgery did not want her to go home on antibiotics as they did not feel she actually had early appendicitis. They did provide return precautions in case she develops right lower quadrant pain with fever. Patient was evaluated by GI who deferred further evaluation to already scheduled [facility] GI. Patient stated that she was feeling somewhat anxious regarding her current condition and that she had previously in her lifetime been suicidal but not currently. She was provided with resources and return precautions including the telephone number for suicide prevention hotline. Patient reported to safe place to go and she requested discharge. Vital signs were stable. Patient discharge in stable condition. Time spent discussing smoking cessation with patient: 3 to 10 minutes Status at Discharge Cognitive/behavioral status at discharge: Awake alert oriented and pleasant Functional status at discharge: independent ambulation Overall status at discharge: patient is progressing back to baseline Time Spent with Patient Time attestation: Total time spent providing and/or coordinating discharge services: 35 Time spent: Greater than 30 minutes Exam Narrative: GENERAL: Generally well appearing, alert and oriented, in no apparent distress. She is pleasant and conversant in full sentences. HEENT: Pupils are equally round and briskly reactive to light. Extraocular muscles are intact. Oral mucous membranes are moist without lesions. NECK: The patient has no noted JVD. No adenopathy is appreciated. CHEST/LUNGS: Lungs are clear bilaterally without rhonchi, rales, or wheezes. There is no subcutaneous air appreciated. There is no tenderness to the chest wall. HEART: The patient has a tachycardic rate and regular rhythm. ABDOMEN: The patient?s abdomen is soft, nontender, and nondistended. Bowel sounds are positive. No peritoneal signs. No anasarca noted EXTREMITIES: The patient has mild nonpitting peripheral edema up to the level of mid thighs. There is no focal long bone tenderness or deformity. SKIN: The patient?s skin is warm and dry, without rashes or lesions. PSYCHIATRIC: The patient has normal mental status and has
[2023-04-22] MEDS: ALPRAZolam (*CRX) 0.5 MG TABLET 1 MG PO (09:12)
[2023-04-22] MEDS: CYCLOBENZAPRINE HCL 10 MG TABLET PO (09:13)
[2023-04-22] MEDS: polyethylene glycoL 3350 17 GM POWD.PACK PO (09:13)
[2023-04-22] MEDS: SERTRALINE HCL 50 MG TABLET 200 MG PO (09:13)
[2023-04-22] MEDS: PANTOPRAZOLE SODIUM IV 40 MG VIAL IV PUSH (09:13)
--- NOTE | 2023-04-22 09:27 | PM.PNGS ---
Progress Note: A&P Assessment and Plan (1) Abnormal CT of the abdomen: Code(s): R93.5 - Abnormal findings on diagnostic imaging of other abdominal regions, including retroperitoneum Status: Acute Assessment and Plan: Patient's pain improved after moving her bowels. Her abdominal pain has resolved. Her abdominal exam is completely benign. WBC remains normal. Her presentation and clinical picture is not consistent with acute appendicitis. It is okay from our standpoint to discharge the patient home and stop antibiotics at this point. Discussed signs of appendicitis with the patient and to return if they occur. Follow-up with surgery only as needed. (2) Constipation: Code(s): K59.00 - Constipation, unspecified Status: Chronic Assessment and Plan: Bowels are moving and pain improved. Discussed with her that this could be contributing to her abdominal pain. Recommended continuing MiraLax on discharge. Plan I have discussed the patient's case and plan of care with Dr. Love. Subjective Subjective Date/Time Seen: 04/22/23 09:27 Patient reports: no new complaints, tolerating liquids well (Full liquids), flatus, bowel movement and afebrile Interval history: Patient feeling much better today. She had 2 bowel movements after taking MiraLax and her abdominal pain has improved significantly. She has no abdominal pain at the time of my exam. Denies any nausea or vomiting. White count still normal. Review of Systems Review of Systems: ROS unchanged Exam Const: General: no acute distress and awake Orientation/consciousness: patient oriented x3 GI: Inspection: non-distended GI Palp: Yes Soft to palpation, No Firmness to palpation present (GI), No Tenderness to palpation present (GI), No Guarding due to palpation present (GI) and No Rebound tenderness present Auscultation: normal bowel sounds Objective Data Vital Signs Vital Signs: Vital Signs - 24 hr 04/21/23 12:00 04/21/23 14:00 04/21/23 17:52 Temperature 98.0 F Pulse Rate 122 H 82 105 H Respiratory Rate 18 Blood Pressure 109/61 Pulse Oximetry 92 Oxygen Delivery 04/21/23 19:44 04/21/23 20:00 04/21/23 20:00 Temperature 97.4 F L Pulse Rate 98 112 H Respiratory Rate 18 Blood Pressure 122/85 Pulse Oximetry 98 Oxygen Delivery Room Air 04/22/23 00:00 04/21/23 21:22 04/22/23 04:00 Temperature Pulse Rate 88 75 Respiratory Rate Blood Pressure Pulse Oximetry 98 Oxygen Delivery Room Air 04/22/23 06:00 Temperature 97.4 F L Pulse Rate 109 H Respiratory Rate 18 Blood Pressure 104/80 Pulse Oximetry 97 Oxygen Delivery Intake/Output Intake/Output: Intake & Output 04/19/23 04/20/23 04/21/23 04/22/23 23:59 23:59 23:59 23:59 Intake Total 350 2330 200 Output Total 1100 Balance 350 1230 200 Meds/Results Medications: Active Medications Generic Name Dose Route Start Last Admin Trade Name Freq PRN Reason Stop Dose Admin Alprazolam 1 mg 04/21/23 09:00 04/22/23 09:12 Alprazolam (*Crx) 0.5 Mg Tablet PO 1 mg TID TONIA Administration Bisacodyl 10 mg 04/21/23 12:07 Bisacodyl 10 Mg Suppository RECTAL QAM PRN Constipation Cyclobenzaprine HCl 10 mg 04/21/23 09:00 04/22/23 09:13 Cyclobenzaprine Hcl 10 Mg Tablet PO 10 mg BID TONIA Administration Metronidazole 500 mg in 100 mls @ 100 mls/hr 04/21/23 07:35 04/22/23 06:30 Flagyl 500 Mg/Iso Soln 100 Ml IVPB Infused Q6HR TONIA Infusion Ceftriaxone Sodium 2 gm in 100 mls @ 200 mls/hr 04/21/23 22:00 04/21/23 21:45 Rocephin 2 Gm/Ns 100 Ml IVPB Infused Q24H TONIA Infusion Pantoprazole Sodium 40 mg 04/21/23 14:15 04/22/23 09:13 Pantoprazole Sodium Iv 40 Mg Vial IV PUSH 40 mg Q12HR TONIA Administration Perflutren Lipid Microsphere 0 ml 04/21/23 10:14 Perflutren Lipid Microspheres 1.5 Ml Vial Diluted To 10 Ml Total Volume IV PUSH 04/24/23 10:14 ONCE PRN ad
[2023-04-24 05:26] LABS: Hepatitis C RNA, Quant PCR 72400 IU/mL
== END 2023-04-22 11:50 | disposition home or self-care (01) ==
LOC: ANHED 18:00 → ANH2MED 22:42
PROVIDERS: Nurse Practitioner; Nurse Practitioner Family; Admitting Provider Internal Medicine; Emergency Provider Emergency Medicine; PCP Physician Assistant; Visit Provider Internal Medicine
DX: R93.5 Abnormal findings on diagnostic imaging of other abdominal regions, including retroperitoneum (principal); M79.89 Other specified soft tissue disorders; K31.84 Gastroparesis; R94.31 Abnormal electrocardiogram [ECG] [EKG]; Z20.822 Contact with and (suspected) exposure to COVID-19; D64.9 Anemia, unspecified; D50.9 Iron deficiency anemia, unspecified; R07.9 Chest pain, unspecified; K59.00 Constipation, unspecified; R79.89 Other specified abnormal findings of blood chemistry; R06.02 Shortness of breath; R74.01 Elevation of levels of liver transaminase levels; R91.8 Other nonspecific abnormal finding of lung field; B19.20 Unspecified viral hepatitis C without hepatic coma; F12.90 Cannabis use, unspecified, uncomplicated; Z79.899 Other long term (current) drug therapy; Z87.891 Personal history of nicotine dependence
CPT/HCPCS: 36415; 36430; 71046; 74177; 76705; 80053; 80074; 80307; 81001; 81025; 82274; 83605; 83690; 83880; 84484; 85025; 85027; 86850; 86900; 86901; 86920; 87086; 87522; 87636; 93005; 93306; 93970; 96365; 96366; 96367; 96374; 96375; 96376; 99285; A9270; C9113; G0378; J0696; J1170; J1836; J7040; J7050; P9016; Q9967

== ENCOUNTER 2024-07-17 20:49 | Emergency (ER) | payer OTHER, SELFPAY ==
[2024-07-17 20:55] VITALS: BP 130/73; PULSE 94; RESP 14; TEMP 36.2; O2SAT 98
--- NOTE | 2024-07-18 09:32 | PC.NURSE ---
Patient not found when called for in the lobby.
== END 2024-07-18 09:43 | disposition left against medical advice (07) ==
LOC: ANHED 07-18 09:35
PROVIDERS: PCP Physician Assistant
DX: R11.2 Nausea with vomiting, unspecified (principal)
CPT/HCPCS: 99199